=== PATIENT | male | born 1970 | race Caucasian/White ===

== ENCOUNTER 2020-01-13 18:07 | Emergency (ER) | payer OTHER ==
[~2020-01-13] VITALS: Ht 162.6 cm; Wt 77.6 kg
[2020-01-13 18:12] VITALS: Ht 162.6 cm; Wt 77.6 kg
[2020-01-13 20:04] VITALS: BP 145/90
== END 2020-01-13 20:04 | disposition home or self-care (01) ==
LOC: ED 18:07
DX: S22.32XA Fracture of one rib, left side, initial encounter for closed fracture (principal); W11.XXXA Fall on and from ladder, initial encounter; Y93.89 Activity, other specified; Y92.89 Other specified places as the place of occurrence of the external cause; Y99.8 Other external cause status